=== PATIENT | female | born 1935 | race Caucasian/White ===

== ENCOUNTER 2022-01-02 14:28 | Outpatient (REF) | payer MEDICARE, SELFPAY ==
[2022-01-02 15:30] LABS: MANUAL DIFF FLAG NO
[2022-01-02 16:12] LABS: Basophils Percent Auto 0.2 % (0-2); Eosinophils Percent Auto 0.4 % (0-4); Hematocrit 41.7 % (37.0-47.0); Hemoglobin 12.8 g/dl (12.0-16.0); Imm Gran Abs Auto 0.06 X10*3/uL (0.00-0.03); Imm Gran Pct Auto 0.6 % (0.0-0.4); Lymphocytes Absolute Auto 3.2 X10*3/uL (1.2-4.9); Lymphocytes Percent Auto 31.4 % (20-40); Mean Corpuscular HGB Conc 30.7 g/dl (31.0-35.0); Mean Corpuscular Hemoglobin 25.3 pg (27.0-33.0); Mean Corpuscular Volume 82.6 fL (80.0-98.0); Mean Platelet Volume 9.7 fL (9.4-12.3); Monocytes Absolute Auto 1.2 X10*3/uL (0.1-1.2); Monocytes Percent Auto 12.4 % (2-11); Neutrophils Absolute Auto 5.5 x10*3/uL (2.0-8.3); Platelet Count 311 X10*3/uL (160-400); Red Blood Count 5.05 X10*6/uL (4.20-5.50); Red Cell Distribution Width 16.9 % (11.0-16.0)
[2022-01-02 16:34] LABS: Anion Gap 13 (12-20); Blood Urea Nitrogen 29 mg/dL (9-16); Calcium 9.4 mg/dL (8.4-10.2); Carbon Dioxide 25 mmol/L (22-29); Chloride 108 mmol/L (96-108); Estimated Glomerular Filt Rate 52; Glucose Random 111 mg/dL (60-115); Potassium 4.3 mmol/L (3.3-5.1); Sodium 142 mmol/L (135-145)
[2022-01-02 16:36] LABS: D Dimer High Sensitivity 469 NG/ML
[2022-01-02 17:02] LABS: Erythrocyte Sedimentation Rate 42 MM/HR (0-20)
[2022-01-05 14:52] LABS: Anti Nuclear Antibody Screen NEGATIVE (NEGATIVE)
[2022-01-05 22:35] LABS: Immunoglobulin E 3 kU/L (<OR=114)
== END 2022-01-02 14:29 | disposition home or self-care (01) ==
LOC: HO.LAB 14:28
PROVIDERS: PCP Physician Assistant Medical; Visit Provider Hospitalist
DX: R06.00 Dyspnea, unspecified (principal); R93.89 Abnormal findings on diagnostic imaging of other specified body structures; R09.02 Hypoxemia; J98.11 Atelectasis; R78.89 Finding of other specified substances, not normally found in blood
CPT/HCPCS: 36415; 80048; 82785; 85025; 85379; 85652; 86038; 86039; 94618; 99202

== ENCOUNTER 2022-01-05 12:57 | Outpatient (REF) | payer MEDICARE, SELFPAY ==
--- NOTE | ~2022-01-05 | CT_ITS ---
EXAMINATION: CT ANGIOGRAM OF THE CHEST WITH AND WITHOUT CONTRAST (CT PULMONARY ANGIOGRAM FOR PE) CLINICAL INFORMATION: Reason for Exam R09.02 - Hypoxemia COMPARISON: None TECHNIQUE: Prior to contrast administration, noncontrast localization images were obtained. Subsequently, multidetector volumetric imaging was performed from the thoracic inlet to below the diaphragms following the administration of 60 mL Omnipaque 350 intravenous contrast. No contrast reaction reported Sagittal, coronal, and MIP oblique sagittal reformatted images were obtained on the CT workstation, uploaded to PACS, and reviewed. This CT examination was performed using dose optimization techniques as appropriate, variously including the following: *Automated exposure control *Adjustment of mA and/or kV according to patient size (this includes techniques or standardized protocols for targeted exams where dose is matched to indication/reason for exam; i.e. extremities or head) *Use of iterative reconstruction technique Total exam dose-length product 123 mGy-cm FINDINGS: QUALITY OF STUDY/CONTRAST BOLUS: Satisfactory. PULMONARY ARTERIES: No central or segmental pulmonary emboli. THORACIC AORTA: No aneurysm or dissection. LUNG: There is a 3 mm calcified left upper lobe nodule probably representing a calcified granuloma. The lungs are otherwise clear. PLEURA: No pleural effusion or pneumothorax. MEDIASTINUM: Normal heart size. Coronary artery calcification. No pericardial effusion. No hilar or mediastinal lymphadenopathy. No evidence of septal bowing or right heart strain. CHEST WALL/AXILLA: No axillary or internal mammary lymphadenopathy. OSSEOUS STRUCTURES: No acute or suspicious osseous abnormality. There are degenerative changes of the spine. UPPER ABDOMEN: The gallbladder has been removed. No reflux of contrast into the hepatic veins to suggest elevated right heart pressures. CT/CT angio chest PE protocol IMPRESSION: No evidence of pulmonary embolism. 3 mm calcified left upper lobe nodule. Coronary artery calcification. VTE: negative
== END 2022-01-05 12:58 | disposition home or self-care (01) ==
LOC: HO.CT 12:57
PROVIDERS: Visit Provider Hospitalist
DX: R06.00 Dyspnea, unspecified (principal); R09.02 Hypoxemia; R78.89 Finding of other specified substances, not normally found in blood
CPT/HCPCS: 71275

== ENCOUNTER 2022-01-07 09:49 | Outpatient (REF) | payer MEDICARE, SELFPAY ==
--- NOTE | 2022-01-07 10:23 | PFT_ITS ---
Forced vital capacity 51%, FEV1 61%. FEV1/FVC ratio 87, FEF 25/75, 112%, and MVV 90%. Postbronchodilator therapy there is a significant improvement in FVC, FEV1, and FEF 25/75. Total lung capacity 66% and residual volume 65%. Diffusion capacity 39%. CONCLUSION: Moderately severe restrictive pulmonary disorder. At the baseline, the flow volumes are normal, but there is a significant response to bronchodilator therapy suggesting diagnosis of bronchial asthma. Clinical correlation recommended. MD MIGUEL Agosto/ANNA / [id number]
== END 2022-01-07 09:50 | disposition home or self-care (01) ==
LOC: HO.RESP 09:49
PROVIDERS: PCP Physician Assistant Medical; Visit Provider Hospitalist
DX: R06.00 Dyspnea, unspecified (principal)
CPT/HCPCS: 94060; 94727; 94729

== ENCOUNTER → 2022-02-03 14:25 | Outpatient (BNVA) | payer MEDICARE, SELFPAY | PROVIDERS: PCP Physician Assistant Medical; Visit Provider Hospitalist | DX: J98.11 Atelectasis (principal); R93.89 Abnormal findings on diagnostic imaging of other specified body structures; R09.02 Hypoxemia; J98.4 Other disorders of lung; R91.1 Solitary pulmonary nodule; R06.00 Dyspnea, unspecified | CPT/HCPCS: 99212 ==

== ENCOUNTER → 2022-05-05 13:04 | Outpatient (BNVA) | payer MEDICARE, SELFPAY | PROVIDERS: PCP Physician Assistant Medical; Visit Provider Hospitalist | DX: R06.00 Dyspnea, unspecified (principal); R93.89 Abnormal findings on diagnostic imaging of other specified body structures; R09.02 Hypoxemia; J98.11 Atelectasis; J98.4 Other disorders of lung; R91.1 Solitary pulmonary nodule; I89.0 Lymphedema, not elsewhere classified | CPT/HCPCS: 99212 ==

== ENCOUNTER 2022-08-24 13:00 | Outpatient (RCR) | payer MEDICARE, SELFPAY | END 2022-12-03 10:10 | disposition home or self-care (01) | LOC: HO.OT 13:00 | PROVIDERS: Visit Provider Hospitalist | DX: I89.0 Lymphedema, not elsewhere classified (principal) | CPT/HCPCS: 97110; 97140; 97535 ==